=== PATIENT | female | born 1960 | race African-American/Black ===

== ENCOUNTER 2017-01-01 21:02 | Emergency (ER) | payer OTHER ==
[~2017-01-01] VITALS: Ht 170.2 cm; Wt 100.0 kg
[~2017-01-01 21:02] MED LIST: DIPH25 PO; GABA-531 PO; LACT10SO PO; LISI-660 PO; OMEP10 PO; OXYC20 PO; PROG100C6 PO; SENN-34 PO; TEMA15CA PO
[2017-01-01] MEDS ORDERED: ONDANSETRON HCL 4 MG/2 ML VIAL IVP ONE (22:00)
[2017-01-01] MEDS ORDERED: MORPHINE SULFATE 4 MG/ML SYRINGE IVP ONE (22:00)
[2017-01-01] MEDS ORDERED: SODIUM CHLORIDE 0.9% 1,000 ML IV ONE (22:00)
[2017-01-01 22:27] LABS: BASOPHILS % (AUTO) 0.1 % (0.0-2.0); EOSINOPHILS % (AUTO) 0 % (1.0-6.0); GLUCOSE,POINT OF CARE 154 MG/DL (70-110); HEMATOCRIT 39.1 % (36-46); HEMOGLOBIN 12.4 g/dL (12.0-16.0); LYMPHOCYTES # (AUTO) 1.1 K/uL (1.0-4.8); LYMPHOCYTES % (AUTO) 5.9 % (22.0-44.0); MEAN CORPUSCULAR HEMOGLOBIN 28.3 pg (26.0-34.0); MEAN CORPUSCULAR HGB CONC 31.6 G/dL (31.0-37.0); MEAN CORPUSCULAR VOLUME 90 fL (80-100); MONOCYTES # (AUTO) 0.7 K/uL (0.1-1.0); MONOCYTES % (AUTO) 3.7 % (2.0-9.0); NEUTROPHILS # (AUTO) 16.7 K/uL (1.8-7.7); PLATELET COUNT (AUTO) 275 K/uL (150-450); RED BLOOD CELL COUNT(AUTO) 4.36 MIL/uL (4.00-5.20); RED CELL DISTRIBUTION WIDTH 15.5 % (11.5-14.5); WHITE BLOOD COUNT (AUTO) 18.4 K/uL (4.5-11.0)
[2017-01-01 22:38] LABS: CALCIUM, TOTAL 9.6 mg/dL (8.8-10.5); CREATININE 1.46 mg/dL (0.60-1.30); POTASSIUM 3.9 mmol/L (3.5-5.1)
[2017-01-01 22:43] LABS: ALBUMIN 3.5 g/dL (3.4-5.0); BILIRUBIN,TOTAL 0.7 mg/dL (0.1-1.0); INR 1.1 (0.9-1.1); PROTHROMBIN TIME 11.8 SEC (9.4-11.6); TOTAL PROTEIN, SERUM 7.9 g/dL (6.4-8.2)
[2017-01-01 22:49] LABS: NEUTROPHILS % (AUTO) 90.3 % (40.0-70.0)
[2017-01-02] MEDS ORDERED: LORazepam 2 MG/ML VIAL IVP ONE
[2017-01-02] MEDS ORDERED: SODIUM CHLORIDE 0.9% 1,000 ML IV ONE (02:15)
[2017-01-02 03:17] VITALS: BP 119/79
== END 2017-01-02 03:38 | disposition home or self-care (01) ==
LOC: EMS 21:13
DX: K52.9 Noninfective gastroenteritis and colitis, unspecified (principal); I10 Essential (primary) hypertension; F17.210 Nicotine dependence, cigarettes, uncomplicated
CPT/HCPCS: 36415; 70450; 80053; 82948; 82962; 83690; 84484; 84703; 85025; 85610; 96361; 96374; 96375; 99285; J2060; J2270; J2405; J7030 ×2

== ENCOUNTER 2017-01-26 06:42 | Emergency (ER) | payer OTHER ==
[~2017-01-26] VITALS: Ht 167.6 cm; Wt 100.9 kg
[2017-01-26] MEDS ORDERED: PARO20TA24 PO (06:56)
[2017-01-26] MEDS ORDERED: BUPR150SR PO (06:56)
[2017-01-26] MEDS ORDERED: GABA-533 PO (06:56)
[2017-01-26] MEDS ORDERED: PROM25 PO (06:56)
[2017-01-26] MEDS ORDERED: LISI1TAB9 PO (06:56)
[2017-01-26] MEDS ORDERED: HALOPERIDOL LACTATE 5 MG/ML VIAL IVP ONE (07:15)
[2017-01-26] MEDS ORDERED: SODIUM CHLORIDE 0.9% 1,000 ML IV ONE ×3 (07:15→09:15)
[2017-01-26] MEDS ORDERED: LOPERAMIDE HCL 2 MG CAPSULE PO ONE (07:15)
[2017-01-26] MEDS ORDERED: CloNIDine HCL 0.2 MG TABLET PO ONE (07:15)
[2017-01-26 07:32] LABS: BASOPHILS # (AUTO) 0.01 K/uL (0.00-0.20); BASOPHILS % (AUTO) 0.1 % (0.0-2.0); EOSINOPHILS % (AUTO) 0 % (1.0-6.0); HEMATOCRIT 34.6 % (36-46); HEMOGLOBIN 11.1 g/dL (12.0-16.0); LYMPHOCYTES # (AUTO) 0.9 K/uL (1.0-4.8); LYMPHOCYTES % (AUTO) 7.3 % (22.0-44.0); MEAN CORPUSCULAR HEMOGLOBIN 28.8 pg (26.0-34.0); MEAN CORPUSCULAR VOLUME 90 fL (80-100); MONOCYTES # (AUTO) 0.3 K/uL (0.1-1.0); MONOCYTES % (AUTO) 2.6 % (2.0-9.0); NEUTROPHILS # (AUTO) 11.1 K/uL (1.8-7.7); PLATELET COUNT (AUTO) 400 K/uL (150-450); RED BLOOD CELL COUNT(AUTO) 3.84 MIL/uL (4.00-5.20); RED CELL DISTRIBUTION WIDTH 16.3 % (11.5-14.5); WHITE BLOOD COUNT (AUTO) 12.3 K/uL (4.5-11.0)
[2017-01-26 07:35] LABS: RBC MORPHOLOGY COMMENT NORMAL RBC MORPH
[2017-01-26 07:44] LABS: ANION GAP 15 mmol/L (8-16); CALCIUM, TOTAL 9.8 mg/dL (8.8-10.5); CARBON DIOXIDE 22 mmol/L (22-29); CHLORIDE 104 mmol/L (98-107); CREATININE 1.17 mg/dL (0.60-1.30); GLOMERULAR FILTR. RATE CALC 58 mL/min (>60); POTASSIUM 3.3 mmol/L (3.5-5.1); SODIUM SERUM 141 mmol/L (136-145); UREA NITROGEN, BLOOD 10 mg/dL (7-18)
[2017-01-26 07:49] LABS: ALANINE AMINOTRANSFERASE 16 U/L (12-78); ALBUMIN 3.6 g/dL (3.4-5.0); ASPARTATE AMINOTRANSFERASE 17 U/L (15-37); BILIRUBIN,TOTAL 0.5 mg/dL (0.1-1.0); TOTAL PROTEIN, SERUM 8.3 g/dL (6.4-8.2)
[2017-01-26 08:22] LABS: LACTIC ACID 4.1 mmol/L (0.4-2.0)
[2017-01-26 09:27] LABS: REFLEX LACTIC ACID? YES YES
[2017-01-26] MEDS ORDERED: ONDANSETRON HCL 4 MG/2 ML VIAL IVP ONE (10:30)
[2017-01-26 11:43] VITALS: BP 134/64
== END 2017-01-26 11:56 | disposition home or self-care (01) ==
LOC: EMS 06:43
DX: F11.23 Opioid dependence with withdrawal (principal); E86.0 Dehydration; R11.10 Vomiting, unspecified; R19.7 Diarrhea, unspecified; R74.0 Nonspecific elevation of levels of transaminase and lactic acid dehydrogenase [LDH]; I10 Essential (primary) hypertension; K21.9 Gastro-esophageal reflux disease without esophagitis; F17.210 Nicotine dependence, cigarettes, uncomplicated
CPT/HCPCS: 36415; 80053; 83605; 85025; 96361; 96374; 96375; 99285; J1630; J2405; J7030

== ENCOUNTER 2019-10-27 13:09 | Inpatient (IN) | payer OTHER ==
[~2019-10-27] VITALS: Ht 167.6 cm; Wt 80.5 kg
[~2019-10-27 13:09] MED LIST changes: +BUPR150SR PO; -GABA-531 PO; +GABA-533 PO; -LACT10SO PO; -LISI-660 PO; +LISI1TAB9 PO; -OXYC20 PO; +OXYC20TA58 PO; +PARO20TA24 PO; -PROG100C6 PO; +PROM25 PO; -SENN-34 PO
[2019-10-27] MEDS ORDERED: CHOL500062 PO (14:59)
[2019-10-27] MEDS ORDERED: TRAZ150 PO (14:59)
[2019-10-27] MEDS ORDERED: ACETAMINOPHEN 325 MG TABLET PO ONE (15:00)
[2019-10-27] MEDS ORDERED: OxyCODONE HCL/ACETAMINOPHEN 5-325 MG TABLET PO ONE (15:45)
[2019-10-27] MEDS ORDERED: GABAPENTIN 100 MG CAPSULE PO ONE (15:45)
[2019-10-27] MEDS ORDERED: TRAZ-252 PO (15:47)
[2019-10-27] MEDS ORDERED: OMEP20 PO (15:47)
[2019-10-27] MEDS ORDERED: LISI-658 PO (15:47)
[2019-10-27] MEDS ORDERED: CHOL500043 PO (15:47)
[2019-10-27 16:03] LABS: BASOPHILS % (AUTO) 0.2 % (0.0-2.0); EOSINOPHILS % (AUTO) 0 % (1.0-6.0); HEMATOCRIT 34.1 % (36-46); HEMOGLOBIN 11.1 g/dL (12.0-16.0); LYMPHOCYTES % (AUTO) 20.8 % (22.0-44.0); MEAN CORPUSCULAR HEMOGLOBIN 28.6 pg (26.0-34.0); MEAN CORPUSCULAR HGB CONC 32.7 G/dL (31.0-37.0); MEAN CORPUSCULAR VOLUME 88 fL (80-100); MONOCYTES # (AUTO) 0.4 K/uL (0.1-1.0); MONOCYTES % (AUTO) 4.6 % (2.0-9.0); NEUTROPHILS # (AUTO) 7.1 K/uL (1.8-7.7); NEUTROPHILS % (AUTO) 74.4 % (40.0-70.0); PLATELET COUNT (AUTO) 276 K/uL (150-450); RED CELL DISTRIBUTION WIDTH 16.4 % (11.5-14.5)
[2019-10-27 16:11] LABS: ANION GAP 9 mmol/L (8-16); CALCIUM, TOTAL 9.6 mg/dL (8.8-10.5); CARBON DIOXIDE 27 mmol/L (22-29); CHLORIDE 102 mmol/L (98-107); CREATININE 0.71 mg/dL (0.60-1.30); GLOMERULAR FILTR. RATE CALC > 60 mL/min (>60); GLUCOSE,RANDOM 90 mg/dL (70-110); POTASSIUM 3.8 mmol/L (3.5-5.1); SODIUM SERUM 138 mmol/L (136-145); UREA NITROGEN, BLOOD 23 mg/dL (7-18)
[2019-10-27 16:17] LABS: ALANINE AMINOTRANSFERASE 15 U/L (12-78); ALBUMIN 3.2 g/dL (3.4-5.0); ALKALINE PHOSPHATASE 81 U/L (46-116); ASPARTATE AMINOTRANSFERASE 14 U/L (15-37); BILIRUBIN,TOTAL 0.3 mg/dL (0.1-1.0); TOTAL PROTEIN, SERUM 7.9 g/dL (6.4-8.2)
[2019-10-27] MEDS ORDERED: ACETAMINOPHEN 325 MG TABLET PO PRN (19:00)
[2019-10-27] MEDS ORDERED: ONDANSETRON HCL 4 MG/2 ML VIAL IVP PRN (19:00)
[2019-10-27] MEDS ORDERED: 0.9% SODIUM CHLORIDE 10 ML SYRINGE IVP PRN (19:00)
[2019-10-27] MEDS ORDERED: OxyCODONE HCL 5 MG IR TABLET PO ONE (20:00)
[2019-10-27] MEDS ORDERED: INFLUENZA VIRUS VACCINE QVS 2019-20 (3YR+)/PF 60 MCG/0.5 ML SYRINGE IM ONE (22:15)
[2019-10-27] MEDS: TraZODone HCL 50 MG TABLET PO PRN (23:01)
[2019-10-27] MEDS: OxyCODONE HCL/ACETAMINOPHEN 5-325 MG TABLET PO PRN (23:03)
[2019-10-28 00:21] VITALS: BP 111/75
[2019-10-28] MEDS ORDERED: OxyCODONE HCL/ACETAMINOPHEN 5-325 MG TABLET PO PRN (00:30)
[2019-10-28] MEDS ORDERED: ONDANSETRON HCL 4 MG/2 ML VIAL IVP PRN (00:30)
[2019-10-28] MEDS ORDERED: 0.9% SODIUM CHLORIDE 10 ML SYRINGE IVP PRN (00:30)
[2019-10-28] MEDS: OxyCODONE HCL/ACETAMINOPHEN 5-325 MG TABLET PO PRN ×5 (03:41→19:45)
[2019-10-28 04:50] VITALS: BP 147/87
[2019-10-28 08:00] VITALS: BP 98/69
[2019-10-28] MEDS: DOCUSATE SODIUM 100 MG CAPSULE PO SCH ×2 (08:25→19:41)
[2019-10-28] MEDS: FAMOTIDINE 10 MG/ML 2 ML VIAL IVP SCH (08:25)
[2019-10-28] MEDS ORDERED: GADOBUTROL 1 MMOL/ML 10 ML VIAL IVP ONE (10:36)
[2019-10-28 12:17] VITALS: BP 106/72
[2019-10-28 17:02] VITALS: BP 104/76
[2019-10-28] MEDS: TraZODone HCL 50 MG TABLET PO PRN (19:45)
[2019-10-28 20:37] VITALS: BP 99/62
[2019-10-29] MEDS: OxyCODONE HCL/ACETAMINOPHEN 5-325 MG TABLET PO PRN ×5 (03:21→23:18)
[2019-10-29 04:04] VITALS: BP 103/69
[2019-10-29 07:19] LABS: BASOPHILS % (AUTO) 0.2 % (0.0-2.0); EOSINOPHILS % (AUTO) 0.1 % (1.0-6.0); HEMATOCRIT 34.9 % (36-46); HEMOGLOBIN 11.4 g/dL (12.0-16.0); LYMPHOCYTES # (AUTO) 2.1 K/uL (1.0-4.8); MEAN CORPUSCULAR HEMOGLOBIN 28.7 pg (26.0-34.0); MEAN CORPUSCULAR HGB CONC 32.7 G/dL (31.0-37.0); MEAN CORPUSCULAR VOLUME 88 fL (80-100); MONOCYTES # (AUTO) 0.5 K/uL (0.1-1.0); MONOCYTES % (AUTO) 6.3 % (2.0-9.0); NEUTROPHILS # (AUTO) 4.8 K/uL (1.8-7.7); NEUTROPHILS % (AUTO) 65.4 % (40.0-70.0); PLATELET COUNT (AUTO) 268 K/uL (150-450); RED BLOOD CELL COUNT(AUTO) 3.98 MIL/uL (4.00-5.20); RED CELL DISTRIBUTION WIDTH 16.3 % (11.5-14.5)
[2019-10-29 07:24] LABS: ANION GAP 6 mmol/L (8-16); CALCIUM, TOTAL 9.7 mg/dL (8.8-10.5); CARBON DIOXIDE 30 mmol/L (22-29); CHLORIDE 101 mmol/L (98-107); CREATININE 0.75 mg/dL (0.60-1.30); GLOMERULAR FILTR. RATE CALC > 60 mL/min (>60); GLUCOSE,RANDOM 89 mg/dL (70-110); SODIUM SERUM 137 mmol/L (136-145); UREA NITROGEN, BLOOD 16 mg/dL (7-18)
[2019-10-29 07:30] VITALS: BP 110/68
[2019-10-29] MEDS: DOCUSATE SODIUM 100 MG CAPSULE PO SCH ×2 (08:10→19:34)
[2019-10-29] MEDS: CHOLECALCIFEROL (VIT D3) 1,000 UNITS TABLET PO SCH (08:10)
[2019-10-29] MEDS: FAMOTIDINE 10 MG/ML 2 ML VIAL IVP SCH (08:11)
[2019-10-29 11:33] VITALS: BP 114/90
[2019-10-29 15:41] VITALS: BP 96/49
[2019-10-29 19:23] VITALS: BP 113/68
[2019-10-29] MEDS: TraZODone HCL 50 MG TABLET PO PRN (23:16)
[2019-10-29 23:44] VITALS: BP 103/61
[2019-10-30] MEDS: OxyCODONE HCL/ACETAMINOPHEN 5-325 MG TABLET PO PRN ×2 (02:55→09:24)
[2019-10-30 04:34] VITALS: BP 107/69
[2019-10-30 07:45] VITALS: BP 108/63
[2019-10-30] MEDS ORDERED: MULTIVITAMINS WITH MINERALS, THERAPEUTIC TABLET PO SCH (09:00)
[2019-10-30] MEDS ORDERED: ASPIRIN 81 MG CHEWABLE TABLET PO SCH (09:00)
[2019-10-30] MEDS: FAMOTIDINE 10 MG/ML 2 ML VIAL IVP SCH (09:21)
[2019-10-30] MEDS: DOCUSATE SODIUM 100 MG CAPSULE PO SCH (09:22)
[2019-10-30] MEDS: HEPARIN SODIUM,PORCINE 5,000 UNITS/ML VIAL SQ SCH ×2 (09:22→16:36)
[2019-10-30] MEDS: CHOLECALCIFEROL (VIT D3) 1,000 UNITS TABLET PO SCH (09:22)
[2019-10-30 11:40] VITALS: BP 109/63
[2019-10-30] MEDS ORDERED: CHOL100018 PO (14:58)
[2019-10-30] MEDS ORDERED: DOCU-275 PO (14:59)
[2019-10-30] MEDS ORDERED: PERCT PO (14:59)
[2019-10-30] MEDS ORDERED: HEPA500018 SQ (15:00)
[2019-10-30] MEDS ORDERED: ASPI81TA39 PO (15:00)
[2019-10-30] MEDS ORDERED: MULT-1192 PO (15:00)
[2019-10-30 15:42] VITALS: BP 112/79
[2019-10-31] MEDS ORDERED: FAMOTIDINE 20 MG TABLET PO SCH (09:00)
== END 2019-10-30 18:45 | DRG 91 ==
LOC: EMS 13:12 → 4E 20:09
PROVIDERS: ADMIT Internal Medicine; ATTEND Internal Medicine
DX: D18.02 Hemangioma of intracranial structures (principal); E43 Unspecified severe protein-calorie malnutrition; G93.9 Disorder of brain, unspecified; I10 Essential (primary) hypertension; K21.9 Gastro-esophageal reflux disease without esophagitis; F41.9 Anxiety disorder, unspecified; M19.90 Unspecified osteoarthritis, unspecified site; G89.29 Other chronic pain; G51.0 Bell's palsy; G35 Multiple sclerosis; Z96.643 Presence of artificial hip joint, bilateral; F17.210 Nicotine dependence, cigarettes, uncomplicated; E86.0 Dehydration; W06.XXXA Fall from bed, initial encounter; Z68.28 Body mass index [BMI] 28.0-28.9, adult; Z72.89 Other problems related to lifestyle; Z91.19 Patient's noncompliance with other medical treatment and regimen; Y92.009 Unspecified place in unspecified non-institutional (private) residence as the place of occurrence of the external cause; Z99.3 Dependence on wheelchair; Z86.73 Personal history of transient ischemic attack (TIA), and cerebral infarction without residual deficits
CPT/HCPCS: 70450; 70553; 72131; 73503; 92507; 92523; 97110; 97162; 97166; 97530; 97535; A9585; G0378; J1644; J3490

== ENCOUNTER 2020-01-29 21:12 | Inpatient (IN) | payer OTHER ==
[~2020-01-29] VITALS: Ht 170.2 cm; Wt 83.5 kg
[~2020-01-29 21:12] MED LIST changes: +ASPI81TA39 PO; -BUPR150SR PO; +CHOL100018 PO; -DIPH25 PO; +DOCU-275 PO; -GABA-533 PO; +HEPA500018 SQ; -LISI1TAB9 PO; +MULT-1192 PO; -OMEP10 PO; -OXYC20TA58 PO; -PARO20TA24 PO; +PERCT PO; -PROM25 PO; -TEMA15CA PO; +TRAZ-252 PO
[2020-01-29 21:47] LABS: BASOPHILS % (AUTO) 0.3 % (0.0-2.0); EOSINOPHILS % (AUTO) 0.5 % (1.0-6.0); HEMATOCRIT 29.1 % (36-46); HEMOGLOBIN 9.3 g/dL (12.0-16.0); LYMPHOCYTES % (AUTO) 27.4 % (22.0-44.0); MEAN CORPUSCULAR HEMOGLOBIN 27.9 pg (26.0-34.0); MEAN CORPUSCULAR HGB CONC 32.1 G/dL (31.0-37.0); MEAN CORPUSCULAR VOLUME 87 fL (80-100); MONOCYTES # (AUTO) 0.8 K/uL (0.1-1.0); MONOCYTES % (AUTO) 7.4 % (2.0-9.0); NEUTROPHILS # (AUTO) 7.1 K/uL (1.8-7.7); NEUTROPHILS % (AUTO) 64.4 % (40.0-70.0); PLATELET COUNT (AUTO) 384 K/uL (150-450); RED BLOOD CELL COUNT(AUTO) 3.35 MIL/uL (4.00-5.20); RED CELL DISTRIBUTION WIDTH 17.4 % (11.5-14.5)
[2020-01-29 21:57] LABS: ANION GAP 10 mmol/L (8-16); CALCIUM, TOTAL 9.5 mg/dL (8.8-10.5); CARBON DIOXIDE 25 mmol/L (22-29); CHLORIDE 105 mmol/L (98-107); GLOMERULAR FILTR. RATE CALC > 60 mL/min (>60); GLUCOSE,RANDOM 87 mg/dL (70-110); POTASSIUM 3.6 mmol/L (3.5-5.1); SODIUM SERUM 140 mmol/L (136-145); UREA NITROGEN, BLOOD 19 mg/dL (7-18)
[2020-01-29 22:03] LABS: ALANINE AMINOTRANSFERASE 75 U/L (12-78); ALBUMIN 2.7 g/dL (3.4-5.0); ALKALINE PHOSPHATASE 92 U/L (46-116); ASPARTATE AMINOTRANSFERASE 50 U/L (15-37); BILIRUBIN,TOTAL 0.3 mg/dL (0.1-1.0); TOTAL PROTEIN, SERUM 8.1 g/dL (6.4-8.2)
[2020-01-29] MEDS ORDERED: OMEP20CA13 PO (22:04)
[2020-01-29] MEDS ORDERED: GABA800T9 PO (22:04)
[2020-01-29] MEDS ORDERED: LISI-657 PO (22:04)
[2020-01-29 22:05] LABS: LACTIC ACID 1.1 mmol/L (0.4-2.0)
[2020-01-29 22:10] LABS: INR 1.1 (0.9-1.1); PROTHROMBIN TIME 11.2 SEC (9.4-11.6)
[2020-01-29 22:15] LABS: B-TYPE NATRIURETIC PEPTIDE 7 pg/mL (0-100)
[2020-01-29 22:41] LABS: APPEARANCE,URINE CLEAR (CLEAR); BILIRUBIN,URINE NEGATIVE (NEGATIVE); GLUCOSE, URINE (UA) NEGATIVE (NEGATIVE); KETONES,URINE NEGATIVE (NEGATIVE); LEUKOCYTE ESTERASE ,URINE NEGATIVE (NEGATIVE); NITRATE,URINE NEGATIVE (NEGATIVE); OCCULT BLOOD,URINE NEGATIVE (NEGATIVE); PH,URINE 5.5 (5.0-8.0); PROTEIN,URINE NEGATIVE (NEGATIVE)
[2020-01-29] MEDS ORDERED: SODIUM CHLORIDE 0.9% 1,000 ML IV ONE (23:15)
[2020-01-29 23:57] LABS: AMPHET/METH SCREEN,URINE NEGATIVE (NEGATIVE); BARBITURATE SCREEN, URINE NEGATIVE (NEGATIVE); BENZODIAZEPINES SCREEN,URINE NEGATIVE (NEGATIVE); CANNABINOID SCREEN,URINE POSITIVE (NEGATIVE); COCAINE SCREEN,URINE NEGATIVE (NEGATIVE); METHADONE SCREEN, URINE NEGATIVE (NEGATIVE); OPIATE SCREEN,URINE POSITIVE (NEGATIVE)
[2020-01-29 23:58] LABS: PHENCYCLIDINE SCREEN,URINE NEGATIVE (NEGATIVE)
[2020-01-30] MEDS ORDERED: PIPERACILLIN/TAZO 3.375 GM/D5W 50 ML IV ONE (01:00)
[2020-01-30] MEDS ORDERED: SODIUM CHLORIDE 0.9% 1,000 ML IV ONE ×2 (01:00→03:15)
[2020-01-30] MEDS ORDERED: 0.9% SODIUM CHLORIDE 10 ML SYRINGE IVP PRN ×2 (03:15→08:00)
[2020-01-30] MEDS ORDERED: ONDANSETRON HCL 4 MG/2 ML VIAL IVP PRN ×2 (03:15→08:00)
[2020-01-30] MEDS ORDERED: ACETAMINOPHEN 325 MG TABLET PO PRN (03:15)
[2020-01-30 04:20] VITALS: BP 123/68
[2020-01-30] MEDS ORDERED: POTASSIUM CHLORIDE 20 MEQ ER TABLET PO PRN (08:00)
[2020-01-30] MEDS ORDERED: MAGNESIUM SULFATE 4 GM/WATER 100 ML IV PRN (08:00)
[2020-01-30] MEDS ORDERED: ZOLPIDEM TARTRATE 5 MG TABLET PO PRN (08:00)
[2020-01-30] MEDS ORDERED: MAGNESIUM SULFATE 2 GM/WATER 50 ML IV PRN (08:00)
[2020-01-30] MEDS: HEPARIN SODIUM,PORCINE 5,000 UNITS/ML VIAL SQ SCH ×2 (08:00→16:33)
[2020-01-30] MEDS ORDERED: POTASSIUM CHL 10 MEQ/WATER 50 ML IV PRN (08:00)
[2020-01-30] MEDS: ACETAMINOPHEN 325 MG TABLET PO PRN ×3 (08:45→21:11)
[2020-01-30] MEDS: PANTOPRAZOLE SODIUM 40 MG DR TABLET PO SCH (08:46)
[2020-01-30] MEDS: DOCUSATE SODIUM 100 MG CAPSULE PO SCH ×2 (08:46→21:00)
[2020-01-30 10:24] LABS: ALBUMIN 2.6 g/dL (3.4-5.0); C-REACTIVE PROTEIN QUANT 1.35 mg/dL (0.00-0.30)
[2020-01-30 11:11] VITALS: BP 101/76
[2020-01-30] MEDS ORDERED: PNEUMOCOCCAL VACCINE POLYVALENT 0.5 ML VIAL [PPSV23] IM ONE (11:30)
[2020-01-30] MEDS: NICOTINE 21 MG/24 HOUR PATCH TD SCH (12:53)
[2020-01-30] MEDS: GABAPENTIN 400 MG CAPSULE PO SCH ×2 (12:53→21:11)
[2020-01-30 16:00] VITALS: BP 133/86
[2020-01-30 20:09] VITALS: BP 92/61
[2020-01-31] VITALS (7 sets, daily range): BP systolic 95–119; BP diastolic 55–82
[2020-01-31] MEDS: HEPARIN SODIUM,PORCINE 5,000 UNITS/ML VIAL SQ SCH ×3 (00:05→16:37)
[2020-01-31 07:39] LABS: BASOPHILS % (AUTO) 0.3 % (0.0-2.0); EOSINOPHILS % (AUTO) 0.4 % (1.0-6.0); HEMATOCRIT 24.3 % (36-46); LYMPHOCYTES % (AUTO) 30.7 % (22.0-44.0); MEAN CORPUSCULAR HEMOGLOBIN 28.3 pg (26.0-34.0); MEAN CORPUSCULAR VOLUME 86 fL (80-100); MONOCYTES # (AUTO) 0.5 K/uL (0.1-1.0); MONOCYTES % (AUTO) 7.3 % (2.0-9.0); NEUTROPHILS % (AUTO) 61.3 % (40.0-70.0); PLATELET COUNT (AUTO) 305 K/uL (150-450); RED BLOOD CELL COUNT(AUTO) 2.83 MIL/uL (4.00-5.20); RED CELL DISTRIBUTION WIDTH 17.7 % (11.5-14.5)
[2020-01-31 07:54] LABS: ANION GAP 6 mmol/L (8-16); CALCIUM, TOTAL 9.4 mg/dL (8.8-10.5); CARBON DIOXIDE 26 mmol/L (22-29); CHLORIDE 106 mmol/L (98-107); CREATININE 0.77 mg/dL (0.60-1.30); GLOMERULAR FILTR. RATE CALC > 60 mL/min (>60); GLUCOSE,RANDOM 85 mg/dL (70-110); POTASSIUM 4.2 mmol/L (3.5-5.1); SODIUM SERUM 138 mmol/L (136-145); UREA NITROGEN, BLOOD 10 mg/dL (7-18)
[2020-01-31] MEDS: NICOTINE 21 MG/24 HOUR PATCH TD SCH (08:34)
[2020-01-31] MEDS: PANTOPRAZOLE SODIUM 40 MG DR TABLET PO SCH (08:34)
[2020-01-31] MEDS: MAGNESIUM OXIDE 400 MG TABLET PO PRN ×3 (08:34→16:32)
[2020-01-31] MEDS: DOCUSATE SODIUM 100 MG CAPSULE PO SCH ×2 (08:35→20:34)
[2020-01-31] MEDS: GABAPENTIN 400 MG CAPSULE PO SCH ×2 (08:35→20:35)
[2020-01-31] MEDS: ACETAMINOPHEN 325 MG TABLET PO PRN ×3 (08:44→20:36)
[2020-02-01] MEDS: HEPARIN SODIUM,PORCINE 5,000 UNITS/ML VIAL SQ SCH ×3 (00:17→15:47)
[2020-02-01] MEDS: ACETAMINOPHEN 325 MG TABLET PO PRN ×3 (05:32→13:53)
[2020-02-01 05:37] VITALS: BP 114/65
[2020-02-01 07:45] LABS: BASOPHILS % (AUTO) 0.3 % (0.0-2.0); EOSINOPHILS % (AUTO) 0.3 % (1.0-6.0); HEMATOCRIT 26.2 % (36-46); HEMOGLOBIN 8.5 g/dL (12.0-16.0); LYMPHOCYTES # (AUTO) 2.1 K/uL (1.0-4.8); LYMPHOCYTES % (AUTO) 35.2 % (22.0-44.0); MEAN CORPUSCULAR HGB CONC 32.6 G/dL (31.0-37.0); MEAN CORPUSCULAR VOLUME 86 fL (80-100); MONOCYTES # (AUTO) 0.4 K/uL (0.1-1.0); MONOCYTES % (AUTO) 7.3 % (2.0-9.0); NEUTROPHILS # (AUTO) 3.4 K/uL (1.8-7.7); NEUTROPHILS % (AUTO) 56.9 % (40.0-70.0); PLATELET COUNT (AUTO) 317 K/uL (150-450); RED BLOOD CELL COUNT(AUTO) 3.05 MIL/uL (4.00-5.20); RED CELL DISTRIBUTION WIDTH 18.5 % (11.5-14.5)
[2020-02-01 08:05] VITALS: BP 123/85
[2020-02-01 08:06] LABS: ANION GAP 8 mmol/L (8-16); CALCIUM, TOTAL 9.5 mg/dL (8.8-10.5); CARBON DIOXIDE 26 mmol/L (22-29); CHLORIDE 106 mmol/L (98-107); CREATININE 0.84 mg/dL (0.60-1.30); GLOMERULAR FILTR. RATE CALC > 60 mL/min (>60); GLUCOSE,RANDOM 84 mg/dL (70-110); POTASSIUM 4.4 mmol/L (3.5-5.1); SODIUM SERUM 140 mmol/L (136-145); UREA NITROGEN, BLOOD 10 mg/dL (7-18)
[2020-02-01] MEDS: DOCUSATE SODIUM 100 MG CAPSULE PO SCH (09:04)
[2020-02-01] MEDS: PANTOPRAZOLE SODIUM 40 MG DR TABLET PO SCH (09:04)
[2020-02-01] MEDS: GABAPENTIN 400 MG CAPSULE PO SCH (09:04)
[2020-02-01] MEDS: NICOTINE 21 MG/24 HOUR PATCH TD SCH (09:04)
[2020-02-01] MEDS ORDERED: SODIUM CHLORIDE 0.9% 100 ML ONE (10:35)
[2020-02-01 11:20] VITALS: BP 98/62
[2020-02-01 16:20] VITALS: BP 123/72
== END 2020-02-01 18:40 | disposition home or self-care (01) | DRG 314 ==
LOC: EMS 21:13 → 5S 01-30 03:03 → EMS 01-30 03:31
PROVIDERS: ADMIT Internal Medicine; ATTEND Internal Medicine
DX: I95.9 Hypotension, unspecified (principal); E43 Unspecified severe protein-calorie malnutrition; I69.351 Hemiplegia and hemiparesis following cerebral infarction affecting right dominant side; I10 Essential (primary) hypertension; F41.9 Anxiety disorder, unspecified; M19.90 Unspecified osteoarthritis, unspecified site; K21.9 Gastro-esophageal reflux disease without esophagitis; D18.00 Hemangioma unspecified site; G89.29 Other chronic pain; G93.9 Disorder of brain, unspecified; Z96.643 Presence of artificial hip joint, bilateral; F17.210 Nicotine dependence, cigarettes, uncomplicated; D64.9 Anemia, unspecified; Z68.28 Body mass index [BMI] 28.0-28.9, adult; F12.90 Cannabis use, unspecified, uncomplicated
CPT/HCPCS: 70450; 82270; 82271; 83605; 83735; 84145; 85651; 86140; 87040; 93005; 93306; 93880; J1644; J2543; J3475; J7030; J7050

== ENCOUNTER 2022-02-04 09:11 | Inpatient (IN) | payer MEDICARE, OTHER ==
[~2022-02-04] VITALS: Ht 167.6 cm; Wt 100.2 kg
[~2022-02-04 09:11] MED LIST changes: +ACET-2247 PO; +ASPI-835 PO; -ASPI81TA39 PO; +BISA10SU11 PR; -CHOL100018 PO; -DOCU-275 PO; +DOCU-385 PO; +ENOX40SY14 SQ; +GABA800T9 PO; -HEPA500018 SQ; -MULT-1192 PO; +OMEP20CA13 PO; +PARO-37 PO; -PERCT PO; +TRAZ-186 PO; -TRAZ-252 PO
[2022-02-04 09:40] LABS: COVID AG,FIA SOURCE NASOPHARYNGEAL
[2022-02-04 10:04] LABS: BASOPHILS % (AUTO) 0.4 % (0.0-2.0); EOSINOPHILS % (AUTO) 0.1 % (1.0-6.0); HEMATOCRIT 37.1 % (36-46); HEMOGLOBIN 12.1 g/dL (12.0-16.0); LYMPHOCYTES # (AUTO) 1.8 K/uL (1.0-4.8); LYMPHOCYTES % (AUTO) 24.7 % (22.0-44.0); MEAN CORPUSCULAR HGB CONC 32.6 G/dL (31.0-37.0); MEAN CORPUSCULAR VOLUME 89 fL (80-100); MONOCYTES # (AUTO) 0.3 K/uL (0.1-1.0); NEUTROPHILS # (AUTO) 5.1 K/uL (1.8-7.7); NEUTROPHILS % (AUTO) 70.8 % (40.0-70.0); PLATELET COUNT (AUTO) 291 K/uL (150-450); RED BLOOD CELL COUNT(AUTO) 4.18 MIL/uL (4.00-5.20); RED CELL DISTRIBUTION WIDTH 15.5 % (11.5-14.5)
[2022-02-04 10:10] LABS: ANION GAP 8 mmol/L (8-16); CALCIUM, TOTAL 9.7 mg/dL (8.8-10.5); CARBON DIOXIDE 29 mmol/L (22-29); CHLORIDE 103 mmol/L (98-107); CREATININE 0.96 mg/dL (0.60-1.30); GLOMERULAR FILTR. RATE CALC > 60 mL/min (>60); GLUCOSE,RANDOM 126 mg/dL (70-110); POTASSIUM 3.9 mmol/L (3.5-5.1); SODIUM SERUM 140 mmol/L (136-145); UREA NITROGEN, BLOOD 14 mg/dL (7-18)
[2022-02-04 10:15] LABS: D-DIMER 2.49 mg/L FEU (0.00-0.50); PROTHROMBIN TIME 10.5 SEC (9.4-11.6)
[2022-02-04 10:18] LABS: INFLUENZA TYPE A NEGATIVE FOR TYPE A (NEGATIVE)
[2022-02-04 10:18] LABS: ALANINE AMINOTRANSFERASE 32 U/L (12-78); ALBUMIN 3.2 g/dL (3.4-5.0); ALKALINE PHOSPHATASE 99 U/L (46-116); ASPARTATE AMINOTRANSFERASE 28 U/L (15-37); BILIRUBIN,TOTAL 0.2 mg/dL (0.1-1.0); CREATINE KINASE, TOTAL ONLY 39 U/L (26-192); PHOSPHORUS 3.7 mg/dL (2.5-4.9); TOTAL PROTEIN, SERUM 8.5 g/dL (6.4-8.2)
[2022-02-04 10:26] LABS: APPEARANCE,URINE HAZY (CLEAR); BILIRUBIN,URINE NEGATIVE (NEGATIVE); GLUCOSE, URINE (UA) NEGATIVE (NEGATIVE); KETONES,URINE NEGATIVE (NEGATIVE); LEUKOCYTE ESTERASE ,URINE NEGATIVE (NEGATIVE); NITRATE,URINE POSITIVE (NEGATIVE); OCCULT BLOOD,URINE NEGATIVE (NEGATIVE); PROTEIN,URINE NEGATIVE (NEGATIVE); UROBILINOGEN,URINE <=1.0 mg/dL (<=1.0)
[2022-02-04 10:27] LABS: B-TYPE NATRIURETIC PEPTIDE < 5 pg/mL (0-100)
[2022-02-04] MEDS ORDERED: SODIUM CHLORIDE 0.9% 100 ML ONE (10:30)
[2022-02-04] MEDS ORDERED: IOHEXOL 300 MG/ML 100 ML VIAL ONE (10:30)
[2022-02-04 10:42] LABS: INFLUENZA TYPE B POSITIVE FOR TYPE B (NEGATIVE)
[2022-02-04 10:43] LABS: RBC,URINE None Seen /HPF (0-2); WBC,URINE None Seen /HPF (0-5)
[2022-02-04 10:44] LABS: BACTERIA,URINE Many /HPF (None Seen); SQUAMOUS EPITHELIAL CELL,UR Few /LPF (None Seen)
[2022-02-04] MEDS ORDERED: MAGNESIUM HYDROXIDE SUSPENSION 30 ML UDCUP PO PRN (11:15)
[2022-02-04] MEDS ORDERED: ONDANSETRON HCL 4 MG/2 ML VIAL IVP PRN (11:15)
[2022-02-04] MEDS ORDERED: ACETAMINOPHEN 325 MG TABLET PO PRN (11:15)
[2022-02-04] MEDS ORDERED: CefTRIAXone 1 GM/DEXTROSE 50 ML IV ONE (11:15)
[2022-02-04] MEDS ORDERED: OSELTAMIVIR PHOSPHATE 75 MG CAPSULE PO ONE (11:15)
[2022-02-04] MEDS: HEPARIN SODIUM,PORCINE 5,000 UNITS/ML VIAL SQ SCH (16:05)
[2022-02-04 16:14] VITALS: BP 98/66
[2022-02-04] MEDS ORDERED: TRAM50TA4 PO (16:27)
[2022-02-04] MEDS ORDERED: FERR-82 PO (16:28)
[2022-02-04] MEDS ORDERED: OMEP20CA12 PO (17:19)
[2022-02-04] MEDS ORDERED: PNEUMOCOCCAL VACCINE POLYVALENT 0.5 ML VIAL [PPSV23] IM. ONE (17:30)
[2022-02-04 20:00] VITALS: BP 131/75
[2022-02-04] MEDS: GABAPENTIN 400 MG CAPSULE PO SCH (21:27)
[2022-02-04] MEDS: OSELTAMIVIR PHOSPHATE 75 MG CAPSULE PO SCH (21:27)
[2022-02-04] MEDS: TraZODone HCL 50 MG TABLET PO SCH (21:27)
[2022-02-04] MEDS: OxyCODONE HCL/ACETAMINOPHEN 5-325 MG TABLET PO PRN (21:28)
[2022-02-04] MEDS: SODIUM CHLORIDE 0.9% 1,000 ML IV SCH (21:28)
[2022-02-04] MEDS: OMEPRAZOLE 20 MG CAPSULE PO SCH (21:43)
[2022-02-05] VITALS (7 sets, daily range): BP systolic 68–132; BP diastolic 18–80
[2022-02-05] MEDS: HEPARIN SODIUM,PORCINE 5,000 UNITS/ML VIAL SQ SCH ×3 (00:27→16:27)
[2022-02-05] MEDS: GABAPENTIN 400 MG CAPSULE PO SCH ×2 (08:16→20:23)
[2022-02-05] MEDS: FAMOTIDINE 20 MG TABLET PO SCH (08:16)
[2022-02-05] MEDS: OSELTAMIVIR PHOSPHATE 75 MG CAPSULE PO SCH ×2 (08:16→20:22)
[2022-02-05] MEDS: OxyCODONE HCL/ACETAMINOPHEN 5-325 MG TABLET PO PRN (08:18)
[2022-02-05] MEDS: SODIUM CHLORIDE 0.9% 1,000 ML IV SCH (12:01)
[2022-02-05] MEDS: SULFAMETHOX/TRIMETH DS 800-160 MG/TABLET PO SCH ×2 (12:40→20:23)
[2022-02-05] MEDS: APIXABAN 5 MG TABLET PO SCH (18:37)
[2022-02-05] MEDS: OMEPRAZOLE 20 MG CAPSULE PO SCH (20:23)
[2022-02-05] MEDS: TraZODone HCL 50 MG TABLET PO SCH (20:23)
[2022-02-06] MEDS: SODIUM CHLORIDE 0.9% 1,000 ML IV SCH ×2 (01:09→20:04)
[2022-02-06] MEDS: OxyCODONE HCL/ACETAMINOPHEN 5-325 MG TABLET PO PRN (02:13)
[2022-02-06 04:19] VITALS: BP 121/73
[2022-02-06 08:50] VITALS: BP 140/71
[2022-02-06] MEDS: GABAPENTIN 400 MG CAPSULE PO SCH ×2 (08:55→20:04)
[2022-02-06] MEDS: FAMOTIDINE 20 MG TABLET PO SCH (08:55)
[2022-02-06] MEDS: SULFAMETHOX/TRIMETH DS 800-160 MG/TABLET PO SCH ×2 (08:55→20:04)
[2022-02-06] MEDS: APIXABAN 5 MG TABLET PO SCH ×2 (08:55→21:22)
[2022-02-06] MEDS: OSELTAMIVIR PHOSPHATE 75 MG CAPSULE PO SCH ×2 (08:55→20:04)
[2022-02-06] MEDS ORDERED: LORazepam 2 MG/ML VIAL IVP ONE (15:30)
[2022-02-06 16:28] VITALS: BP 125/75
[2022-02-06] MEDS: OMEPRAZOLE 20 MG CAPSULE PO SCH (20:04)
[2022-02-06] MEDS: TraZODone HCL 50 MG TABLET PO SCH (20:04)
[2022-02-06 20:19] VITALS: BP 133/75
[2022-02-07] MEDS: OxyCODONE HCL/ACETAMINOPHEN 5-325 MG TABLET PO PRN (00:36)
[2022-02-07 06:18] VITALS: BP 125/78
[2022-02-07 08:18] VITALS: BP 146/84
[2022-02-07] MEDS: FAMOTIDINE 20 MG TABLET PO SCH (08:56)
[2022-02-07] MEDS: OSELTAMIVIR PHOSPHATE 75 MG CAPSULE PO SCH (08:56)
[2022-02-07] MEDS: GABAPENTIN 400 MG CAPSULE PO SCH (08:56)
[2022-02-07] MEDS: APIXABAN 5 MG TABLET PO SCH (08:56)
[2022-02-07] MEDS: SULFAMETHOX/TRIMETH DS 800-160 MG/TABLET PO SCH (08:56)
[2022-02-07 12:02] VITALS: BP 135/74
[2022-02-07] MEDS: SODIUM CHLORIDE 0.9% 1,000 ML IV SCH (12:11)
[2022-02-07] MEDS ORDERED: OSEL75 PO (12:54)
[2022-02-07] MEDS ORDERED: BACTDSB PO (12:55)
[2022-02-07] MEDS ORDERED: GADOTERATE MEGLUMINE 10 MMOL/20 ML VIAL IVP ONE (14:28)
[2022-02-07] MEDS ORDERED: LORazepam 2 MG/ML VIAL IVP ONE ×2 (14:45→15:00)
[2022-02-07 16:25] VITALS: BP 148/74
[2022-02-07 19:30] VITALS: BP 110/81
== END 2022-02-07 21:04 | disposition home or self-care (01) | DRG 193 ==
LOC: EMS 09:11 → 5S 14:41 → 6N 02-06 16:58
PROVIDERS: ADMIT Internal Medicine; ATTEND Internal Medicine
DX: J10.1 Influenza due to other identified influenza virus with other respiratory manifestations (principal); R53.2 Functional quadriplegia; L02.212 Cutaneous abscess of back [any part, except buttock and flank]; N39.0 Urinary tract infection, site not specified; G35 Multiple sclerosis; E66.9 Obesity, unspecified; I10 Essential (primary) hypertension; Z96.641 Presence of right artificial hip joint; G89.29 Other chronic pain; K21.9 Gastro-esophageal reflux disease without esophagitis; Z20.822 Contact with and (suspected) exposure to COVID-19; F41.1 Generalized anxiety disorder; M19.90 Unspecified osteoarthritis, unspecified site; Z68.35 Body mass index [BMI] 35.0-35.9, adult; Z74.01 Bed confinement status; Z87.891 Personal history of nicotine dependence; Z79.899 Other long term (current) drug therapy
CPT/HCPCS: 70553; 71045; 71275; 80053; 81001; 82550; 83735; 83880; 84100; 84484; 85025; 85379; 85610; 85730; 87086; 87804; 92610; 93005; 93971; 99285; J0696; J1644; J2060; J7030; J7050; Q9967; 36415-L1; 36415-TC